=== PATIENT | male | born 1960 | race Caucasian/White ===

== ENCOUNTER 2024-08-26 10:29 | Emergency (ER) | payer SELFPAY ==
[2024-08-26] MEDS ORDERED: Boostrix 0.5 ML (Tdap) VIAL (>/=7 yrs of age) ONE (11:04)
[2024-08-26] MEDS ORDERED: Lidocaine 1% PF 5 ML VIAL ONE (11:50)
== END 2024-08-26 11:19 | disposition home or self-care (01) ==
LOC: MADERS 10:29
DX: S61.012A Laceration without foreign body of left thumb without damage to nail, initial encounter (principal); Z87.891 Personal history of nicotine dependence; W31.2XXA Contact with powered woodworking and forming machines, initial encounter; Y93.89 Activity, other specified; Y92.513 Shop (commercial) as the place of occurrence of the external cause
CPT/HCPCS: 12002; 90471; 90715